=== PATIENT | male | born 1980 | race Caucasian/White ===

== ENCOUNTER → 2018-06-28 13:10 | Outpatient (CLI) | payer OTHER, SELFPAY ==
[2018-06-28 14:07] LABS: Add Manual Diff / Slide Review NO; Basophils Absolute Auto 0 /uL (0-100); Basophils Percent Auto 0.6 % (0-2); Eosinophils Absolute Auto 0 /uL (0-450); Eosinophils Percent Auto 0.9 % (2-4); Hematocrit 44.1 % (41-53); Lymphocytes Absolute Auto 1600 /uL (1100-4500); Lymphocytes Percent Auto 30.1 % (25-40); Mean Corpuscular HGB Conc 33.9 % (30-36); Mean Corpuscular Hemoglobin 30.5 PG (26-34); Mean Corpuscular Volume 89.9 fL (80-100); Monocytes Absolute Auto 800 /uL (0-900); Monocytes Percent Auto 15.1 % (3-14); Neutrophils Absolute Auto 2900 /uL (1500-7000); Neutrophils Percent Auto 53.3 % (50-75); Platelet Count 212 X10^3/uL (150-400); Red Cell Distribution Width 14.3 % (11.6-14.8); White Blood Cell Count 5.4 X10^3/uL (4.5-11.0)
[2018-06-28 14:17] LABS: Alanine Aminotransferase 44 IU/L (21-72); Albumin 4.7 g/dL (3.5-5.0); Albumin Globulin Ratio 1.5 (1.0-2.8); Alkaline Phosphatase 62 U/L (38-126); Aspartate Aminotransferase 44 IU/L (17-59); BUN Creatinine Ratio 15.5 (6-22); Bilirubin Total 1.3 mg/dL (0.2-1.3); Blood Urea Nitrogen 17 mg/dL (9-20); Calcium 9.2 mg/dL (8.4-10.2); Carbon Dioxide 24 mmol/L (22-32); Chloride 103 mmol/L (98-107); Estimated Glomerular Filt Rate > 60.0 mL/min (>60); Globulin 3.1 g/dL (1.7-4.1); Glucose 81 mg/dL (70-100); HEMOLYSIS < 15 (0-50); Lipase 257 U/L (23-300); Potassium 3.4 mmol/L (3.4-5.1); Sodium 141 mmol/L (137-145); Total Protein 7.8 g/dL (6.3-8.2)
== END ==
PROVIDERS: Family Provider Family Medicine; PCP Family Medicine; Visit Provider Physician Assistant
DX: R19.7 Diarrhea, unspecified (principal)
CPT/HCPCS: 36415; 80053; 83690; 85025

== ENCOUNTER → 2020-11-17 16:50 | Outpatient (CLI) | payer OTHER, SELFPAY ==
[2020-11-17 17:27] LABS: Add Manual Diff / Slide Review NO; Basophils Absolute Auto 100 /uL (0-100); Basophils Percent Auto 0.8 % (0-2); Eosinophils Absolute Auto 100 /uL (0-450); Hematocrit 43.7 % (41-53); Lymphocytes Absolute Auto 2700 /uL (1100-4500); Lymphocytes Percent Auto 36.9 % (25-40); Mean Corpuscular HGB Conc 34.3 % (30-36); Mean Corpuscular Hemoglobin 30.9 PG (26-34); Mean Corpuscular Volume 90.3 fL (80-100); Monocytes Absolute Auto 500 /uL (0-900); Monocytes Percent Auto 6.5 % (3-14); Neutrophils Absolute Auto 3900 /uL (1500-7000); Neutrophils Percent Auto 53.8 % (50-75); Platelet Count 220 X10^3/uL (150-400); Red Blood Cell Count 4.84 X10^6/uL (4.5-5.9); Red Cell Distribution Width 13.6 % (11.6-14.8); White Blood Cell Count 7.2 X10^3/uL (4.5-11.0)
[2020-11-17 17:49] LABS: Alanine Aminotransferase 27 IU/L (<50); Albumin 4.6 g/dL (3.5-5.0); Albumin Globulin Ratio 1.5 (1.0-2.8); Alkaline Phosphatase 67 U/L (38-126); Aspartate Aminotransferase 36 IU/L (17-59); BUN Creatinine Ratio 16.7 (6-22); Bilirubin Total 0.7 mg/dL (0.2-1.3); Blood Urea Nitrogen 15 mg/dL (9-20); Calcium 9.3 mg/dL (8.4-10.2); Carbon Dioxide 29 mmol/L (22-32); Chloride 106 mmol/L (98-107); Cholesterol 243 mg/dL (140-199); Estimated Glomerular Filt Rate > 60.0 mL/min (>60); Glucose 111 mg/dL (70-100); HDL Cholesterol 39 mg/dL (40-60); HEMOLYSIS < 15 (0-50); Potassium 3.6 mmol/L (3.4-5.1); Sodium 141 mmol/L (137-145); Total Protein 7.6 g/dL (6.3-8.2); Triglycerides 443 mg/dL (35-150)
[2020-11-17 18:15] LABS: TSH w/ Reflex to FT4 1.78 uIU/mL (0.47-4.68)
== END ==
PROVIDERS: Family Provider Family Medicine; PCP Student in an Organized Health Care Education/Training Program; Referring Provider Student in an Organized Health Care Education/Training Program; Visit Provider Student in an Organized Health Care Education/Training Program
DX: C44.91 Basal cell carcinoma of skin, unspecified (principal); I10 Essential (primary) hypertension; Z13.220 Encounter for screening for lipoid disorders; E55.9 Vitamin D deficiency, unspecified
CPT/HCPCS: 36415; 80053; 80061; 82306; 84443; 85025

== ENCOUNTER → 2020-12-04 07:49 | Outpatient (CLI) | payer OTHER, SELFPAY | PROVIDERS: Family Provider Family Medicine; PCP Student in an Organized Health Care Education/Training Program; Referring Provider Student in an Organized Health Care Education/Training Program; Visit Provider Student in an Organized Health Care Education/Training Program | DX: E78.1 Pure hyperglyceridemia (principal); R79.89 Other specified abnormal findings of blood chemistry | CPT/HCPCS: 36415; 80061; 83704; 83721 ==

== ENCOUNTER 2021-09-03 18:55 | Emergency (ER) | payer OTHER, SELFPAY ==
[2021-09-03 19:13] VITALS: BP 155/99; PULSE 80; RESP 18; TEMP 36.8; O2SAT 98; BMI 28.5
--- NOTE | 2021-09-03 19:14 | ED.DIZZY ---
HPI - Dizziness General Chief Complaint: Dizziness Stated Complaint: hard time waking up,dizziness Time Seen by Provider: 09/03/21 19:11 Source: patient Mode of arrival: Ambulatory Limitations: no limitations History of Present Illness HPI Narrative: This is a 41-year-old male who comes emergency department patient states he laid down for a few minutes woke up an hour later. He states he was kind of hard to awaken for his kids. Afterwards he felt lightheaded and both his arms were tingling for about 10 minutes. He states this has all resolved. He denies headache, no fevers or chills. No additional dizziness although he states if he stands up very quickly he will have a little bit of mild symptoms. No cough, cold, congestive symptoms. He states he is still feels tired like he could fall asleep and sleeps very deeply. He notes that he is in his 1st week of using his CPAP machine. Patient denies any chest pain or shortness of breath. Denies any nausea or vomiting. He denies any constipation. He did have diarrheal stools x2 in the last 24 hours. Denies any dysuria urgency, dark urine or hematuria. 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 He states he had a cup of coffee today but has not really adjusted any other fluids. He is on lisinopril for hypertension. He has sleep apnea and was recently started on his CPAP. Only surgeries were excision of a skin cancer, no allergies to medications. No tobacco, rare alcohol and none today, no illicit. Patient's primary care physician is Dr. Zacarias. Related Data Previous Rx's Medication Instructions Recorded lisinopril 20 mg tablet 20 mg PO DAILY #90 tabs 03/29/21 Allergies Allergy/AdvReac Type Severity Reaction Status Date / Time No Known Drug Allergies Allergy Verified 09/03/21 19:13 Review of Systems Review of Systems ROS Unobtainable: All systems reviewed & are unremarkable except as noted in HPI and below Patient History Medical History Excessive daytime sleepiness Obstructive sleep apnea Skin cancer (~2017) Surgical History Anesthesia History of oral surgery Status post Mohs surgery (~04/2017) Status post myringotomy with insertion of tube Family History Father Obstructive sleep apnea Leiomyosarcoma Chronic pain Cancer Grandmother Age: 90 Diabetes mellitus Grandfather Diabetes mellitus Sister Age: 39 Parasomnia Social History Smoking Status: Never smoker Smoking Status: Never smoker Exam Narrative Exam Narrative: GEN: well nourished, well appearing male, alert and oriented x 3, patient appears to be in mild distress. HEENT: Atraumatic, pupils are equal round reactive to light, extraocular movements are intact, nares are clear, TMs are clear with no fluid, there is no conjunctival pallor. Throat is clear without any exudates, erythema, tonsillar enlargement or uvular deviation, no facial droop. HEART: Regular rate and rhythm without murmur, clicks, rubs. Pulses equal bilateral upper extremities. LUNGS:Lungs clear to auscultation, no wheezes, rales, crackles, chest moves symmetrically ABD:bowel sounds normal, soft, non-tender, no guarding, rebound, rigidity, no masses noted, no hepatosplenomegaly :No CVA tenderness MSCL: Non-tender, no muscle atrophy, muscles strength 5/5 upper and lower extremities, full range of motion, normal gait NEURO:CN 2-12 intact, sensation normal, reflexes 2/4 upper and lower extremities. finger nose finger test normal, heel sy test normal SKIN: No rash, erythema or other skin changes Initial Vital Signs Initial Vital Signs: Vital Signs Temperature 98.3 F 09/03/21 19:13 Pulse Rate 80 09/03/21 19:13 Respiratory Rate 18 09/03/21 19:13 Blood Pressure 155/99 H 09/03/21 19:13 Pulse Oximetry 98 09/03/21 19:13 Oxygen Delivery Method 09/03/21 19:13 Course Orders Ordered: ED Orders 09/03/21 19:19 EKG-12 Lead Stat 09/03/21 19:20 COVID19 -Nasal RAPID/Pre-Proc Stat 09/03/21 19:45 CBC Auto Diff [Complete Blood Count AUTO DIFF] Stat CMP [Comprehensive Metabolic Panel] Stat Vital Signs Vital signs: Vital Signs - 8 hr 09/03/21 19:13 09/03/21 21:05 Temperature 98.3 F Pulse Rate 80 81 Respiratory Rate 18 16 Blood Pressure 155/99 H 151/72 H Pulse Oximetry 98 98 Oxygen Delivery Method Room Air Room Air MDM - Dizziness Lab Data Result diagrams: 09/03/21 19:45 09/03/21 19:45 Labs: Lab Results 09/03/21 09/03/21 09/03/21 Range/Units 19:20 19:45 19:45 WBC 7.7 (4.5-11.0) X10^3/uL RBC 4.60 (4.5-5.9) X10^6/uL Hgb 14.7 (13.5-17.5) g/dL Hct 41.0 (41-53) % MCV 89.0 (80-100) fL MCH 32.0 (26-34) PG MCHC 35.9 (30-36) % RDW 13.9 (11.6-14.8) % Plt Count 213 (150-400) X10^3/uL Neut % (Auto) 60.6 (50-75) % Lymph % (Auto) 31.2 (25-40) % [place] % (Auto) 4.8 (3-14) % Eos % (Auto) 2.6 (2-4) % Baso % (Auto) 0.8 (0-2) % Neut # (Auto) 4600 (8300-0658) /uL Lymph # (Auto) 2400 (1900-2113) /uL [place] # (Auto) 400 (0-900) /uL Eos # (Auto) 200 (0-450) /uL Baso # (Auto) 100 (0-100) /uL Sodium 139 (137-145) mmol/L Potassium 3.8 (3.4-5.1) mmol/L Chloride 107 (98-107) mmol/L Carbon Dioxide 20 L (22-32) mmol/L BUN 20 (9-20) mg/dL Creatinine 0.98 (0.66-1.25) mg/dL Estimated GFR > 60 (>60) mL/min BUN/Creatinine Ratio 20.4 (6-22) Glucose 142 H (70-100) mg/dL Calcium 8.8 (8.4-10.2) mg/dL Total Bilirubin 0.6 (0.2-1.3) mg/dL AST 36 (17-59) IU/L ALT 24 (<50) IU/L Alkaline Phosphatase 69 (38-126) U/L Total Protein 7.2 (6.3-8.2) g/dL Albumin 4.4 (3.5-5.0) g/dL Globulin 2.8 (1.7-4.1) g/dL Albumin/Globulin Ratio 1.6 (1.0-2.8) SARS-CoV-2 (PCR) Negative (Negative) Point of Care Testing Glucose POC 139 ECG Data Attestation: I personally reviewed and interpreted this ECG as follows: Prior ECG tracings: not available for review Interpretation: Sinus rhythm rate of 79 IN 114 QRS of 96 and QTC of 419. No acute ST changes appreciated. No priors available for comparison. MDM Narrative Medical decision making narrative: This is a 41-year-old male who comes with complaint of lightheadedness upon awakening states he was hard to awaken by his child and still feels sleepy and tingling of his upper arms which resolved about 10 minutes after he woke up. Discharge Plan Departure Patient Disposition: Home Clinical Impression: Dizziness Instructions: DI for Orthostatic Hypotension Activity Restrictions/Additional Instructions: Follow-up if you are having any mild but persistent symptoms. Please increase your fluid intake. Please continue your CPAP it will become more comfortable over time acute find it quite helpful. Please return to the emergency department severe headaches, altered mental status, passing out, new chest pain or shortness of breath, new weakness, numbness or tingling, facial droop, speech difficulties or other new or concerning symptoms. Prescriptions: No Action lisinopril 20 mg tablet 20 mg PO DAILY Qty: 90 2RF Referrals: Prabhjot Zacarias MD [Primary Care Provider] - Visit Report Forms: Patient Portal/API
--- NOTE | 2021-09-03 19:42 | PC.NURSE ---
Pt reports feeling more tired than normal. Denies any other sx at this time.
[2021-09-03 19:49] LABS: COVID19 -Nasal RAPID Negative (Negative)
[2021-09-03 20:08] LABS: Add Manual Diff / Slide Review NO; Basophils Absolute Auto 100 /uL (0-100); Basophils Percent Auto 0.8 % (0-2); Eosinophils Absolute Auto 200 /uL (0-450); Eosinophils Percent Auto 2.6 % (2-4); Hemoglobin 14.7 g/dL (13.5-17.5); Lymphocytes Absolute Auto 2400 /uL (1100-4500); Lymphocytes Percent Auto 31.2 % (25-40); Mean Corpuscular HGB Conc 35.9 % (30-36); Monocytes Absolute Auto 400 /uL (0-900); Monocytes Percent Auto 4.8 % (3-14); Neutrophils Absolute Auto 4600 /uL (1500-7000); Neutrophils Percent Auto 60.6 % (50-75); Platelet Count 213 X10^3/uL (150-400); Red Cell Distribution Width 13.9 % (11.6-14.8); White Blood Cell Count 7.7 X10^3/uL (4.5-11.0)
[2021-09-03 20:36] LABS: Alanine Aminotransferase 24 IU/L (<50); Albumin 4.4 g/dL (3.5-5.0); Albumin Globulin Ratio 1.6 (1.0-2.8); Alkaline Phosphatase 69 U/L (38-126); Aspartate Aminotransferase 36 IU/L (17-59); BUN Creatinine Ratio 20.4 (6-22); Bilirubin Total 0.6 mg/dL (0.2-1.3); Blood Urea Nitrogen 20 mg/dL (9-20); Calcium 8.8 mg/dL (8.4-10.2); Carbon Dioxide 20 mmol/L (22-32); Chloride 107 mmol/L (98-107); Estimated Glomerular Filt Rate > 60 mL/min (>60); Globulin 2.8 g/dL (1.7-4.1); Glucose 142 mg/dL (70-100); Sodium 139 mmol/L (137-145); Total Protein 7.2 g/dL (6.3-8.2)
[2021-09-03 20:48] LABS: HEMOLYSIS 53 (0-50)
[2021-09-03 20:49] LABS: Potassium 3.8 mmol/L (3.4-5.1)
[2021-09-03 21:05] VITALS: BP 151/72; PULSE 81; RESP 16; O2SAT 98
== END 2021-09-03 21:06 | disposition home or self-care (01) ==
PROVIDERS: Emergency Provider Emergency Medicine; Family Provider Family Medicine; PCP Student in an Organized Health Care Education/Training Program
DX: R42 Dizziness and giddiness (principal); R20.2 Paresthesia of skin; R19.7 Diarrhea, unspecified; Z20.822 Contact with and (suspected) exposure to COVID-19
CPT/HCPCS: 36415; 80053; 82962; 85025; 87635; 93005; 93010; 99283; 99284; C9803

== ENCOUNTER 2021-11-20 16:11 | Emergency (ER) | payer OTHER, SELFPAY ==
[2021-11-20 16:37] VITALS: BP 134/92; PULSE 94; RESP 18; TEMP 36.6; O2SAT 99; BMI 28.5
--- NOTE | 2021-11-20 20:56 | ED.SYNCOPE ---
HPI - Syncope General Chief Complaint: Dizziness Stated Complaint: Vertigo per pt, [facility] sent him Source: patient Mode of arrival: Ambulatory Limitations: no limitations Related Data Previous Rx's Medication Instructions Recorded lisinopril 20 mg tablet 20 mg PO DAILY #90 tabs 03/29/21 loratadine-pseudoephedrine ER 10 1 tab PO DAILY #14 tabs 11/14/21 mg-240 mg tablet,extended [id number] (Claritin-D 24 Hour) meclizine 25 mg tablet 25 mg PO BID PRN dizziness #20 tabs 11/14/21 Allergies Allergy/AdvReac Type Severity Reaction Status Date / Time No Known Drug Allergies Allergy Verified 11/20/21 16:37 Patient History Medical History Excessive daytime sleepiness Obstructive sleep apnea Skin cancer (~2017) Surgical History Anesthesia History of oral surgery Status post Mohs surgery (~04/2017) Status post myringotomy with insertion of tube Family History Father Obstructive sleep apnea Leiomyosarcoma Chronic pain Cancer Grandmother Age: 90 Diabetes mellitus Grandfather Diabetes mellitus Sister Age: 39 Parasomnia Social History Smoking Status: Never smoker Smoking Status: Never smoker alcohol intake frequency: holidays/special occasions only Substance Use Type: does not use Exam Initial Vital Signs Initial Vital Signs: Vital Signs Temperature 97.8 F 11/20/21 16:37 Pulse Rate 94 H 11/20/21 16:37 Respiratory Rate 18 11/20/21 16:37 Blood Pressure 134/92 H 11/20/21 16:37 Pulse Oximetry 99 11/20/21 16:37 Oxygen Delivery Method 11/20/21 16:37 Course Orders Ordered: ED Orders 11/20/21 16:45 XR chest 1V Stat Complete Blood Count AUTO DIFF Stat Comprehensive Metabolic Panel Stat Lipase Stat Magnesium Stat Troponin & CK Cardiac Panel Stat EKG-12 Lead Stat Vital Signs Vital signs: Vital Signs - 8 hr 11/20/21 16:37 Temperature 97.8 F Pulse Rate 94 H Respiratory Rate 18 Blood Pressure 134/92 H Pulse Oximetry 99 Oxygen Delivery Method Room Air Discharge Plan Departure Patient Disposition: Left Without Being Seen Clinical Impression: Patient left after triage
== END 2021-11-20 17:05 | disposition left against medical advice (07) ==
PROVIDERS: Emergency Provider Emergency Medicine; Family Provider Family Medicine; PCP Student in an Organized Health Care Education/Training Program
CPT/HCPCS: 99281

== ENCOUNTER 2021-11-23 10:59 | Emergency (ER) | payer OTHER, SELFPAY ==
[2021-11-23 11:26] VITALS: BP 146/105; PULSE 83; RESP 18; TEMP 36.8; O2SAT 99; BMI 28.3
--- NOTE | 2021-11-23 11:29 | DI.RAD.S_ITS ---
PROCEDURE: XR CHEST 1V INDICATIONS: Chest pain TECHNIQUE: One view of the chest was acquired. COMPARISON: None. FINDINGS: Surgical changes and devices: None. Lungs and pleura: Lungs are clear. No pleural effusions or pneumothorax. Mediastinum: Mediastinal contours appear normal. Heart size is normal. Bones and chest wall: No suspicious bony lesions. Overlying soft tissues appear unremarkable. IMPRESSION: No acute cardiopulmonary process demonstrated radiographically. Dictated by: Virgil Shaffer M.D. on 11/23/2021 at 11:51 Approved by: Virgil Shaffer M.D. on 11/23/2021 at 11:54
[2021-11-23 12:17] LABS: COVID19 -Nasal RAPID Negative (Negative)
[2021-11-23 12:26] LABS: Add Manual Diff / Slide Review NO; Basophils Absolute Auto 100 /uL (0-100); Basophils Percent Auto 0.8 % (0-2); Eosinophils Absolute Auto 0 /uL (0-450); Eosinophils Percent Auto 0.5 % (2-4); Lymphocytes Absolute Auto 1400 /uL (1100-4500); Lymphocytes Percent Auto 17.2 % (25-40); Mean Corpuscular HGB Conc 34.9 % (30-36); Mean Corpuscular Hemoglobin 31.2 PG (26-34); Mean Corpuscular Volume 89.4 fL (80-100); Monocytes Absolute Auto 500 /uL (0-900); Monocytes Percent Auto 6.4 % (3-14); Neutrophils Absolute Auto 6300 /uL (1500-7000); Neutrophils Percent Auto 75.1 % (50-75); Platelet Count 232 X10^3/uL (150-400); Red Blood Cell Count 5.14 X10^6/uL (4.5-5.9); Red Cell Distribution Width 14.2 % (11.6-14.8); White Blood Cell Count 8.4 X10^3/uL (4.5-11.0)
[2021-11-23 12:42] LABS: Alanine Aminotransferase 27 IU/L (<50); Albumin Globulin Ratio 1.3 (1.0-2.8); Alkaline Phosphatase 61 U/L (38-126); Aspartate Aminotransferase 35 IU/L (17-59); BUN Creatinine Ratio 11.3 (6-22); Blood Urea Nitrogen 11 mg/dL (9-20); Calcium 9.8 mg/dL (8.4-10.2); Carbon Dioxide 29 mmol/L (22-32); Chloride 104 mmol/L (98-107); Creatine Kinase 235 U/L (55-170); Estimated Glomerular Filt Rate > 60 mL/min (>60); Globulin 3.9 g/dL (1.7-4.1); Glucose 101 mg/dL (70-100); HEMOLYSIS < 15 (0-50); Lipase 190 U/L (23-300); Magnesium 2.3 mg/dL (1.6-2.3); Sodium 145 mmol/L (137-145); Total Protein 8.9 g/dL (6.3-8.2)
[2021-11-23 12:53] LABS: Troponin I < 0.012 ng/mL (0.01-0.034)
[2021-11-23 12:57] LABS: CKMB % Relative Index 0.7 % (1.5-5.0); Creatine Kinase MB 1.55 ng/mL (<2.37)
--- NOTE | 2021-11-23 16:01 | PC.NURSE ---
Pt appears well, AAOx3, ambulatory. Pt roomed into 3 and Michelle Parker PAC at bedside for assessment.
[2021-11-23 16:10] VITALS: BP 150/105; PULSE 77; RESP 20; O2SAT 99
--- NOTE | 2021-11-23 16:48 | ED_ITS ---
HPI - Weakness <Michelle Parker PA-C - Last Filed: 11/23/21 16:53> General Chief complaint: Weakness Stated complaint: high blood pressure, weakness Time Seen by Provider: 11/23/21 15:54 Source: patient Mode of arrival: Ambulatory History of Present Illness HPI Narrative: 41-year-old male with past medical history hypertension presents to the ED with 3 days of URI symptoms, weakness. Patient states that he started experiencing a sore throat, cough, runny nose, followed by fatigue this morning. Patient noted that his blood pressure was very elevated with systolic in the 170s. Patient takes lisinopril daily as prescribed for hypertension. Patient denies fever, chills, chest pain, shortness of breath, nausea, vomiting, dysuria, lightheadedness, dizziness, syncope. Patient states that his children have had the cold at home, that he likely caught it from them. Related Data Previous Rx's Medication Instructions Recorded lisinopril 20 mg tablet 20 mg PO DAILY #90 tabs 03/29/21 loratadine-pseudoephedrine ER 10 1 tab PO DAILY #14 tabs 11/14/21 mg-240 mg tablet,extended [id number] (Claritin-D 24 Hour) Allergies Allergy/AdvReac Type Severity Reaction Status Date / Time No Known Drug Allergies Allergy Verified 11/25/21 10:48 Review of Systems <Michelle Parker PA-C - Last Filed: 11/23/21 16:53> Review of Systems ROS Unobtainable: All systems reviewed & are unremarkable except as noted in HPI and below Constitutional Constitutional: Denies chills, Reports fatigue, Denies fever(s), Denies frequent falls, Denies lethargy and Reports weakness Eyes Eyes: Denies change in vision, Denies eye discharge, Denies irritation and Denies loss of vision ENT Ears, Nose, Mouth, and Throat: Denies change in voice, Denies dizziness, Reports nasal congestion, Reports nasal discharge, Denies neck pain, Reports sore throat and Denies throat swelling Cardiovascular Cardiovascular: Denies chest pain, Denies irregular heart rhythm, Denies lightheadedness, Denies palpitations, Denies dyspnea, Denies dyspnea on exertion and Denies orthopnea Respiratory Respiratory: Denies cough, Denies dyspnea, Denies dyspnea on exertion and Denies wheezing Gastrointestinal Gastrointestinal: Denies abdominal pain, Denies change in bowel habits, Denies diarrhea, Denies nausea and Denies vomiting Genitourinary Genitourinary: Denies hematuria, Denies flank pain, Denies urinary incontinence and Denies urinary urgency Musculoskeletal Musculoskeletal: Denies back pain, Denies muscle weakness, Denies neck pain, Denies numbness and Denies tingling Integumentary/Breasts Skin/Breast: Denies pruritus, Denies erythema, Denies rash and Denies wounds Neurologic Neurologic: Denies behavioral changes, Denies confusion, Denies dizziness, Denies frequent falls, Denies loss of vision, Denies numbness, Denies tingling and Reports weakness Psychiatric Psychiatric: Denies anxiety, Denies behavioral changes, Denies confusion, Denies depression, Denies homicidal ideation and Denies suicidal ideation Endocrine Endocrine: Reports fatigue, Denies flushing and Denies palpitations Hematologic/Lymphatic Hematologic/Lymphatic: Denies easy bruising Allergic/Immunologic Allergic/Immunologic: Denies urticaria, Denies throat swelling and Denies wheezing Patient History <Michelle Parker PA-C - Last Filed: 11/23/21 16:53> Medical History Excessive daytime sleepiness Obstructive sleep apnea Skin cancer (~2017) Surgical History Anesthesia History of oral surgery Status post Mohs surgery (~04/2017) Status post myringotomy with insertion of tube Family History Father Obstructive sleep apnea Leiomyosarcoma Chronic pain Cancer Grandmother Age: 90 Diabetes mellitus Grandfather Diabetes mellitus Sister Age: 39 Parasomnia Social History Smoking Status: Never smoker Smoking Status: Never smoker alcohol intake frequency: holidays/special occasions only Substance Use Type: does not use Exam <Michelle Parker PA-C - Last Filed: 11/23/21 16:53> Narrative Exam Narrative: Const General:?cooperative, healthy appearing and comfortable [facility] Head:?normal to inspection Ears:?hearing grossly normal bilaterally Nose:?external nose normal Face and sinus:?normal facial exam and sinuses nontender Mouth:?oral mucosae normal Throat:?posterior oropharynx normal Eyes General:?appearance normal, both eyes and all related structures Neck Neck:?normal visual inspection and no lymphadenopathy noted Resp Effort & Inspection:?normal respiratory effort Auscultation:?clear to auscultation bilaterally Cardio Rate:?regular rate Rhythm:?regular rhythm Neuro General:?patient alert, patient awake and patient oriented x3 Initial Vital Signs Initial Vital Signs: Vital Signs Temperature 98.3 F 11/23/21 11:26 Pulse Rate 83 11/23/21 11:26 Respiratory Rate 18 11/23/21 11:26 Blood Pressure 146/105 H 11/23/21 11:26 Pulse Oximetry 99 11/23/21 11:26 Oxygen Delivery Method 11/23/21 11:26 <Zabrina Cota DO - Last Filed: 11/26/21 14:40> Initial Vital Signs Initial Vital Signs: Vital Signs Temperature 98.3 F 11/23/21 11:26 Pulse Rate 83 11/23/21 11:26 Respiratory Rate 18 11/23/21 11:26 Blood Pressure 146/105 H 11/23/21 11:26 Pulse Oximetry 99 11/23/21 11:26 Oxygen Delivery Method 11/23/21 11:26 Course <Michelle aPrker PA-C - Last Filed: 11/23/21 16:53> Orders Ordered: ED Orders 11/23/21 11:29 XR chest 1V Stat EKG-12 Lead Stat 11/23/21 11:30 COVID19 -Nasal RAPID/Pre-Proc Stat 11/23/21 11:52 Complete Blood Count AUTO DIFF Stat Comprehensive Metabolic Panel Stat Lipase Stat Magnesium Stat Troponin & CK Cardiac Panel Stat Vital Signs Vital signs: Vital Signs - 8 hr 11/23/21 11:26 11/23/21 16:10 Temperature 98.3 F Pulse Rate 83 77 Respiratory Rate 18 20 Blood Pressure 146/105 H 150/105 H Pulse Oximetry 99 99 Oxygen Delivery Method Room Air Room Air <Zabrina Cota DO - Last Filed: 11/26/21 14:40> Orders Ordered: ED Orders 11/23/21 11:29 XR chest 1V Stat EKG-12 Lead Stat 11/23/21 11:30 COVID19 -Nasal RAPID/Pre-Proc Stat 11/23/21 11:52 Complete Blood Count AUTO DIFF Stat Comprehensive Metabolic Panel Stat Lipase Stat Magnesium Stat Troponin & CK Cardiac Panel Stat Vital Signs Vital signs: Vital Signs - 8 hr 11/23/21 11:26 11/23/21 16:10 Temperature 98.3 F Pulse Rate 83 77 Respiratory Rate 18 20 Blood Pressure 146/105 H 150/105 H Pulse Oximetry 99 99 Oxygen Delivery Method Room Air Room Air MDM - Weakness <Michelle Parker PA-C - Last Filed: 11/23/21 16:53> Lab Data Result diagrams: 11/23/21 11:52 11/23/21 11:52 Labs: Lab Results 11/23/21 11/23/21 11/23/21 Range/Units 11:30 11:52 11:52 WBC 8.4 (4.5-11.0) X10^3/uL RBC 5.14 (4.5-5.9) X10^6/uL Hgb 16.0 (13.5-17.5) g/dL Hct 46.0 (41-53) % MCV 89.4 (80-100) fL MCH 31.2 (26-34) PG MCHC 34.9 (30-36) % RDW 14.2 (11.6-14.8) % Plt Count 232 (150-400) X10^3/uL Neut % (Auto) 75.1 H (50-75) % Lymph % (Auto) 17.2 L (25-40) % [place] % (Auto) 6.4 (3-14) % Eos % (Auto) 0.5 L (2-4) % Baso % (Auto) 0.8 (0-2) % Neut # (Auto) 6300 (1386-7349) /uL Lymph # (Auto) 1400 (6631-7034) /uL [place] # (Auto) 500 (0-900) /uL Eos # (Auto) 0 (0-450) /uL Baso # (Auto) 100 (0-100) /uL Sodium 145 (137-145) mmol/L Potassium 4.0 (3.4-5.1) mmol/L Chloride 104 (98-107) mmol/L Carbon Dioxide 29 (22-32) mmol/L BUN 11 (9-20) mg/dL Creatinine 0.97 (0.66-1.25) mg/dL Estimated GFR > 60 (>60) mL/min BUN/Creatinine Ratio 11.3 (6-22) Glucose 101 H (70-100) mg/dL Calcium 9.8 (8.4-10.2) mg/dL Magnesium 2.3 (1.6-2.3) mg/dL Total Bilirubin 1.0 (0.2-1.3) mg/dL AST 35 (17-59) IU/L ALT 27 (<50) IU/L Alkaline Phosphatase 61 (38-126) U/L Total Creatine Kinase 235 H (55-170) U/L CK-MB (CK-2) 1.55 (<2.37) ng/mL CK-MB (CK-2) Rel Index 0.7 L (1.5-5.0) % Troponin I < 0.012 (0.01-0.034) ng/mL Total Protein 8.9 H (6.3-8.2) g/dL Albumin 5.0 (3.5-5.0) g/dL Globulin 3.9 (1.7-4.1) g/dL Albumin/Globulin Ratio 1.3 (1.0-2.8) Lipase 190 (23-300) U/L SARS-CoV-2 (PCR) Negative (Negative) Imaging Data Chest x-ray: Radiologist Impression: PROCEDURE:? XR CHEST 1V ? INDICATIONS:? Chest pain ? TECHNIQUE:? One view of the chest was acquired.? ? COMPARISON:? None. ? FINDINGS:? ? Surgical changes and devices:? None.? ? Lungs and pleura:? Lungs are clear.? No pleural effusions or pneumothorax.? ? Mediastinum:? Mediastinal contours appear normal.? Heart size is normal.? ? Bones and chest wall:? No suspicious bony lesions.? Overlying soft tissues appear unremarkable.? ? IMPRESSION:? No acute cardiopulmonary process demonstrated radiographically. ? ? Dictated by: Virgil Shaffer M.D. on 11/23/2021 at 11:51 ? ? Approved by: Virgil Shaffer M.D. on 11/23/2021 at 11:54 ? MDM Narrative Medical decision making narrative: 41-year-old male with past medical history hypertension presents to the ED with 3 days of URI symptoms, weakness. Concern for COVID-19 versus other viral elevated blood pressure reading. Patient's workup was without acute findings. Patient's symptoms are likely due to a viral URI. Supportive measures discussed with patient. Patient also agrees to follow up with his PCP to monitor his blood pressure. Advised patient to keep a home log of blood pressure readings to take with him to the PCP. ED return precautions were discussed with patient. He verbalized understanding. <Zabrina Cota, DO - Last Filed: 11/26/21 14:40> Lab Data Labs: Lab Results 11/23/21 11/23/21 11/23/21 Range/Units 11:30 11:52 11:52 WBC 8.4 (4.5-11.0) X10^3/uL RBC 5.14 (4.5-5.9) X10^6/uL Hgb 16.0 (13.5-17.5) g/dL Hct 46.0 (41-53) % MCV 89.4 (80-100) fL MCH 31.2 (26-34) PG MCHC 34.9 (30-36) % RDW 14.2 (11.6-14.8) % Plt Count 232 (150-400) X10^3/uL Neut % (Auto) 75.1 H (50-75) % Lymph % (Auto) 17.2 L (25-40) % [place] % (Auto) 6.4 (3-14) % Eos % (Auto) 0.5 L (2-4) % Baso % (Auto) 0.8 (0-2) % Neut # (Auto) 6300 (6376-8815) /uL Lymph # (Auto) 1400 (8530-4742) /uL [place] # (Auto) 500 (0-900) /uL Eos # (Auto) 0 (0-450) /uL Baso # (Auto) 100 (0-100) /uL Sodium 145 (137-145) mmol/L Potassium 4.0 (3.4-5.1) mmol/L Chloride 104 (98-107) mmol/L Carbon Dioxide 29 (22-32) mmol/L BUN 11 (9-20) mg/dL Creatinine 0.97 (0.66-1.25) mg/dL Estimated GFR > 60 (>60) mL/min BUN/Creatinine Ratio 11.3 (6-22) Glucose 101 H (70-100) mg/dL Calcium 9.8 (8.4-10.2) mg/dL Magnesium 2.3 (1.6-2.3) mg/dL Total Bilirubin 1.0 (0.2-1.3) mg/dL AST 35 (17-59) IU/L ALT 27 (<50) IU/L Alkaline Phosphatase 61 (38-126) U/L Total Creatine Kinase 235 H (55-170) U/L CK-MB (CK-2) 1.55 (<2.37) ng/mL CK-MB (CK-2) Rel Index 0.7 L (1.5-5.0) % Troponin I < 0.012 (0.01-0.034) ng/mL Total Protein 8.9 H (6.3-8.2) g/dL Albumin 5.0 (3.5-5.0) g/dL Globulin 3.9 (1.7-4.1) g/dL Albumin/Globulin Ratio 1.3 (1.0-2.8) Lipase 190 (23-300) U/L SARS-CoV-2 (PCR) Negative (Negative) Discharge Plan Departure Patient Disposition: Home Clinical Impression: BP (high blood pressure) Instructions: High Blood Pressure Activity Restrictions/Additional Instructions: You were evaluated in the ED today for weakness and high blood pressure. You workup was normal. Your symptoms are likely due to catching a cold from other family members. Your blood pressure was elevated in the ED today, please fol low-up with your PCP Dr. Sy as soon as possible. Please keep a blood pressure log at home where you record blood pressure twice a day at the same time for a couple of weeks. Please take that with you to the PCP. If symptoms worsen, you experience chest pain, shortness of breath, please return to the ED. Prescriptions: No Action loratadine-pseudoephedrine [Claritin-D 24 Hour] 10-240 mg tablet extended release 24 hr 1 tab PO DAILY Qty: 14 0RF lisinopril 20 mg tablet 20 mg PO DAILY Qty: 90 2RF Referrals: Prabhjot Zacarias MD [Primary Care Provider] - Visit Report Forms: Patient Portal/API <Zabrina Cota DO - Last Filed: 11/26/21 14:40> Cosign ED Attending Samsonature Attestation: I was immediately available in the department for consultation. Documentation has been reviewed.
== END 2021-11-23 16:14 | disposition home or self-care (01) ==
PROVIDERS: Emergency Medicine; Emergency Provider Student in an Organized Health Care Education/Training Program; Family Provider Family Medicine; PCP Student in an Organized Health Care Education/Training Program
DX: I10 Essential (primary) hypertension (principal); Z20.822 Contact with and (suspected) exposure to COVID-19; R07.9 Chest pain, unspecified
CPT/HCPCS: 36415; 71045; 80053; 82550; 82553; 83690; 83735; 84484; 85025; 87635; 93005; 93010; 99284; C9803

== ENCOUNTER 2021-11-25 10:29 | Emergency (ER) | payer OTHER, SELFPAY ==
[2021-11-25 10:43] VITALS: BP 144/93; PULSE 91; RESP 15; TEMP 36.6; O2SAT 99; BMI 29.1
--- NOTE | 2021-11-25 11:27 | ED_ITS ---
HPI - General Adult General Chief complaint: Urogenital-Male Stated complaint: pos dehydration Time Seen by Provider: 11/25/21 11:06 Source: patient Mode of arrival: Ambulatory History of Present Illness HPI narrative: Patient is a 41-year-old male who is here for evaluation of multiple episodes of urination this morning. He states that he goes to the restroom. Urinates less than what he normally does. Feels like he is emptying his bladder. Goes back and sits down and then feels like he has to go and urinate once again. He is not having any discomfort with urination. Had diarrhea this morning. No fevers. No abdominal pain. He thought maybe he was dehydrated so he started drinking more water. Related Data Previous Rx's Medication Instructions Recorded lisinopril 20 mg tablet 20 mg PO DAILY #90 tabs 03/29/21 loratadine-pseudoephedrine ER 10 1 tab PO DAILY #14 tabs 11/14/21 mg-240 mg tablet,extended [id number] (Claritin-D 24 Hour) Allergies Allergy/AdvReac Type Severity Reaction Status Date / Time No Known Drug Allergies Allergy Verified 11/25/21 10:48 Review of Systems Review of Systems ROS Unobtainable: All systems reviewed & are unremarkable except as noted in HPI and below Patient History Medical History Excessive daytime sleepiness Obstructive sleep apnea Skin cancer (~2017) Surgical History Anesthesia History of oral surgery Status post Mohs surgery (~04/2017) Status post myringotomy with insertion of tube Family History Father Obstructive sleep apnea Leiomyosarcoma Chronic pain Cancer Grandmother Age: 90 Diabetes mellitus Grandfather Diabetes mellitus Sister Age: 39 Parasomnia Social History Smoking Status: Never smoker Smoking Status: Never smoker alcohol intake frequency: holidays/special occasions only Substance Use Type: does not use Exam Initial Vital Signs Initial Vital Signs: Vital Signs Temperature 97.9 F 11/25/21 10:43 Pulse Rate 91 H 11/25/21 10:43 Respiratory Rate 15 11/25/21 10:43 Blood Pressure 144/93 H 11/25/21 10:43 Pulse Oximetry 99 11/25/21 10:43 Oxygen Delivery Method 11/25/21 10:43 Const General: cooperative and comfortable HENMT Head: normal to inspection and normocephalic Resp Effort & Inspection: normal respiratory effort Cardio Rate: regular rate GI Inspection: normal to inspection and non-distended Palpation: soft and No tender Skin General: no rashes or lesions noted Neuro General: patient alert, patient awake and moves all extremities Extrem General: normal to inspection and capillary refill normal Psych Appearance: grossly normal and well kempt Course Orders Ordered: Discontinued Medications Sodium Chloride (Normal Saline 0.9%) 1,000 mls @ 1,000 mls/hr IV BOLUS ONE Stop: 11/25/21 12:05 Last Admin: 11/25/21 11:31 Dose: Not Given Documented By: LORNE Vital Signs Vital signs: Vital Signs - 8 hr 11/25/21 10:43 11/25/21 12:27 Temperature 97.9 F Pulse Rate 91 H Respiratory Rate 15 86 H Blood Pressure 144/93 H 140/94 H Pulse Oximetry 99 99 Oxygen Delivery Method Room Air Room Air Medical Decision Making Lab Data Labs: Urine Dip Bedside Urine Glucose Negative Bedside Urine Bilirubin - Negative Bedside Urine Ketone - Negative Urine Specific [place] 1.005 Bedside Urine Occult Blood - Negative Bedside Urine pH 7.0 Bedside Urine Protein - Negative Bedside Urine Urobilinogen - Negative Bedside Urine Nitrite - Negative Bedside Urine Leukocytes - Negative Esterase Point of care testing: Urine Dip Bedside Urine Glucose Negative Bedside Urine Bilirubin - Negative Bedside Urine Ketone - Negative Urine Specific [place] 1.005 Bedside Urine Occult Blood - Negative Bedside Urine pH 7.0 Bedside Urine Protein - Negative Bedside Urine Urobilinogen - Negative Bedside Urine Nitrite - Negative Bedside Urine Leukocytes - Negative Esterase MDM Narrative Medical decision making narrative: Urinalysis shows no signs of infection. Post void residual shows that he is not retaining urine to the point were I would recommend putting in a urinary catheter. He states that he is not been sleeping well recently and wonder if maybe his urinary symptoms could be the result of stress and lack asleep. Reassured him that there did not appear to be any signs of an infection nor surgical issue. Advised that he contact his primary provider for follow-up. He expressed understanding and agreement. Discharge Plan Departure Patient Disposition: Home Clinical Impression: Urinary frequency Activity Restrictions/Additional Instructions: I do recommend that you continue to take any medications as directed. Stay hydrated like we discussed. If your symptoms worsen or you develop new symptoms please return to the emergency department. Contact your primary doctor for follow-up Prescriptions: No Action loratadine-pseudoephedrine [Claritin-D 24 Hour] 10-240 mg tablet extended release 24 hr 1 tab PO DAILY Qty: 14 0RF lisinopril 20 mg tablet 20 mg PO DAILY Qty: 90 2RF Referrals: Prabhjot Zacarias MD [Primary Care Provider] - Visit Report Forms: Patient Portal/API
[2021-11-25 12:27] VITALS: BP 140/94; RESP 86; O2SAT 99
== END 2021-11-25 12:28 | disposition home or self-care (01) ==
PROVIDERS: Emergency Provider Emergency Medicine; Family Provider Family Medicine; PCP Student in an Organized Health Care Education/Training Program
DX: R35.0 Frequency of micturition (principal)
CPT/HCPCS: 51798; 81003; 99282

== ENCOUNTER → 2021-11-30 11:29 | Outpatient (CLI) | payer OTHER, SELFPAY ==
[2021-11-30 12:07] LABS: Add Manual Diff / Slide Review NO; Basophils Absolute Auto 100 /uL (0-100); Basophils Percent Auto 0.7 % (0-2); Eosinophils Absolute Auto 100 /uL (0-450); Eosinophils Percent Auto 0.9 % (2-4); Hematocrit 46.3 % (41-53); Hemoglobin 15.9 g/dL (13.5-17.5); Lymphocytes Absolute Auto 1800 /uL (1100-4500); Lymphocytes Percent Auto 25.1 % (25-40); Mean Corpuscular HGB Conc 34.3 % (30-36); Mean Corpuscular Hemoglobin 30.8 PG (26-34); Mean Corpuscular Volume 89.7 fL (80-100); Monocytes Absolute Auto 300 /uL (0-900); Monocytes Percent Auto 4.1 % (3-14); Neutrophils Absolute Auto 5000 /uL (1500-7000); Neutrophils Percent Auto 69.2 % (50-75); Platelet Count 251 X10^3/uL (150-400); Red Blood Cell Count 5.16 X10^6/uL (4.5-5.9); Red Cell Distribution Width 13.9 % (11.6-14.8); White Blood Cell Count 7.2 X10^3/uL (4.5-11.0)
[2021-11-30 12:23] LABS: Erythrocyte Sedimentation Rate 3 MM/HR (0-15)
[2021-11-30 12:55] LABS: Alanine Aminotransferase 20 IU/L (<50); Albumin 4.9 g/dL (3.5-5.0); Albumin Globulin Ratio 1.6 (1.0-2.8); Alkaline Phosphatase 65 U/L (38-126); Aspartate Aminotransferase 29 IU/L (17-59); BUN Creatinine Ratio 11.8 (6-22); Bilirubin Total 0.8 mg/dL (0.2-1.3); Blood Urea Nitrogen 12 mg/dL (9-20); C-Reactive Protein Quant < 0.5 mg/dL (<1.0); Calcium 9.5 mg/dL (8.4-10.2); Carbon Dioxide 26 mmol/L (22-32); Chloride 104 mmol/L (98-107); Estimated Glomerular Filt Rate > 60 mL/min (>60); Globulin 3.1 g/dL (1.7-4.1); Glucose 103 mg/dL (70-100); HEMOLYSIS < 15 (0-50); Potassium 4.4 mmol/L (3.4-5.1); Sodium 143 mmol/L (137-145)
== END ==
PROVIDERS: Family Provider Family Medicine; PCP Student in an Organized Health Care Education/Training Program; Referring Provider Registered Nurse; Visit Provider Registered Nurse
DX: M79.651 Pain in right thigh (principal); M79.652 Pain in left thigh
CPT/HCPCS: 36415; 80053; 85025; 85651; 86140

== ENCOUNTER 2021-12-09 10:48 | Emergency (ER) | payer OTHER, SELFPAY ==
[2021-12-09] VITALS (12 sets, daily range): BP systolic 132–166; BP diastolic 85–101; PULSE 76–96; RESP 18; TEMP 37.2; O2SAT 97–100; BMI 29.1
--- NOTE | 2021-12-09 10:52 | DI.RAD.S_ITS ---
PROCEDURE: XR CHEST 2V INDICATIONS: shortness of breath TECHNIQUE: 2 views of the chest were acquired. COMPARISON: , , XR CHEST 1V, 11/23/2021, 11:41. FINDINGS: Surgical changes and devices: None. Lungs and pleura: Lungs are clear. No pleural effusions or pneumothorax. Mediastinum: Mediastinal contours are normal. Heart size is normal. Bones and chest wall: No suspicious bony abnormalities. Soft tissues appear unremarkable. IMPRESSION: No acute pulmonary process. Dictated by: Irina Iqbal M.D. on 12/09/2021 at 11:31 Approved by: Irina Iqbal M.D. on 12/09/2021 at 11:31
[2021-12-09 11:20] LABS: Add Manual Diff / Slide Review NO; Basophils Absolute Auto 100 /uL (0-100); Basophils Percent Auto 0.8 % (0-2); Eosinophils Absolute Auto 100 /uL (0-450); Eosinophils Percent Auto 0.6 % (2-4); Hematocrit 46.8 % (41-53); Hemoglobin 16.4 g/dL (13.5-17.5); Lymphocytes Absolute Auto 1900 /uL (1100-4500); Lymphocytes Percent Auto 22.5 % (25-40); Mean Corpuscular Hemoglobin 31.1 PG (26-34); Mean Corpuscular Volume 88.7 fL (80-100); Monocytes Absolute Auto 300 /uL (0-900); Monocytes Percent Auto 4.1 % (3-14); Neutrophils Absolute Auto 6000 /uL (1500-7000); Platelet Count 256 X10^3/uL (150-400); Red Blood Cell Count 5.28 X10^6/uL (4.5-5.9); Red Cell Distribution Width 13.6 % (11.6-14.8); White Blood Cell Count 8.3 X10^3/uL (4.5-11.0)
[2021-12-09 11:24] LABS: Lactate (Lactic Acid) 2.8 mmol/L (0.7-2.1)
[2021-12-09 11:25] LABS: Alanine Aminotransferase 41 IU/L (<50); Albumin Globulin Ratio 1.3 (1.0-2.8); Alkaline Phosphatase 73 U/L (38-126); Aspartate Aminotransferase 48 IU/L (17-59); BUN Creatinine Ratio 13.8 (6-22); Bilirubin Total 0.9 mg/dL (0.2-1.3); Blood Urea Nitrogen 15 mg/dL (9-20); Calcium 9.8 mg/dL (8.4-10.2); Carbon Dioxide 23 mmol/L (22-32); Chloride 105 mmol/L (98-107); Estimated Glomerular Filt Rate > 60 mL/min (>60); Globulin 3.8 g/dL (1.7-4.1); Glucose 131 mg/dL (70-100); HEMOLYSIS 47 (0-50); Potassium 3.9 mmol/L (3.4-5.1); Sodium 142 mmol/L (137-145); Total Protein 8.8 g/dL (6.3-8.2)
[2021-12-09 11:25] LABS: Creatine Kinase 272 U/L (55-170)
[2021-12-09 11:34] LABS: NT-proBNP (BNP-Adult 18+) 21 pg/mL (<125)
[2021-12-09 11:37] LABS: Troponin I < 0.012 ng/mL (0.01-0.034)
[2021-12-09 11:41] LABS: CKMB % Relative Index 0.6 % (1.5-5.0); Creatine Kinase MB 1.68 ng/mL (<2.37)
--- NOTE | 2021-12-09 11:45 | ED.SOB ---
HPI - SOB/Dyspnea General Chief Complaint: Shortness of Breath/Dyspnea Stated Complaint: Trouble Breathing Time Seen by Provider: 12/09/21 11:09 Source: patient Mode of arrival: Ambulatory Limitations: no limitations History of Present Illness HPI Narrative: Is a healthy 41-year-old male history of hypertension presenting today with shortness of breath. He states that he was in his normal state of health yesterday this is feels like he can not catch his breath he had extreme difficulty taking his trash out which is very atypical for him he usually walks the dog 3-4 miles daily. He was able to do so yesterday. He states that he traveled to [place] last week and got back. He has no calf pain or leg pain. He has not had any fever chills or cough. He has no chest pain. Related Data Previous Rx's Medication Instructions Recorded lisinopril 20 mg tablet 20 mg PO DAILY #90 tabs 03/29/21 albuterol sulfate 90 mcg/actuation 2 puff inhalation Q4-6H PRN 12/09/21 aerosol inhaler shortness of breath or wheezing #8.5 grams Allergies Allergy/AdvReac Type Severity Reaction Status Date / Time No Known Drug Allergies Allergy Verified 12/09/21 10:53 Review of Systems Review of Systems Narrative: GENERAL: Denies chills, fatigue, malaise, fever, sweats, travel HEENT: Denies sinus pain, ear pain, sore throat, difficulty swallowing, neck pain RESPIRATORY: See HPI CARDIOVASCULAR: Denies chest pain, palpitations, orthopnea, edema GASTROINTESTINAL: Denies nausea, vomiting, abdominal pain, diarrhea, constipation, melena. : Denies dysuria, frequency, incontinence, hematuria, urinary retention, flank pain. MUSCULOSKELETAL: Denies weakness, joint pain, or bony pain SKIN: No rash, no erythema, no pruritus NEUROLOGIC: Denies weakness, dizziness, headache, numbness, change in speech, confusion PSYCHIATRIC: No concerning psychosocial issues. 12 point review of systems is negative except for those stated above and HPI Patient History Medical History Allergic rhinitis (03/20/13) Basal cell carcinoma (BCC) (12/26/16) Family history of malignant neoplasm (03/20/13) Ganglion cyst of flexor tendon sheath (03/20/13) Moderate mixed hyperlipidemia not requiring statin therapy Obstructive sleep apnea Surgical History Anesthesia History of oral surgery Status post Mohs surgery (~04/2017) Status post myringotomy with insertion of tube Family History Father Obstructive sleep apnea Leiomyosarcoma Chronic pain Cancer Grandmother Age: 90 Diabetes mellitus Grandfather Diabetes mellitus Sister Age: 39 Parasomnia Social History Smoking Status: Never smoker Smoking Status: Never smoker alcohol intake frequency: holidays/special occasions only Substance Use Type: does not use Exam Initial Vital Signs Initial Vital Signs: Vital Signs Temperature 98.9 F 12/09/21 10:48 Pulse Rate 90 12/09/21 10:48 Respiratory Rate 18 12/09/21 10:48 Blood Pressure 166/101 H 12/09/21 10:48 Pulse Oximetry 100 12/09/21 10:48 Oxygen Delivery Method 12/09/21 10:48 GENERAL: Alert pleasant 41-year-old male mildly uncomfortable HEENT: Head atraumatic,EOMI, pupils reactive, face symmetric, moist mucous membranes CARDIOVASCULAR: Regular rate and rhythm without murmurs, rubs or gallops. RESPIRATORY: Breath sounds equal bilaterally, no wheezes rales or rhonchi. ABDOMEN: Soft, nontender. Normoactive bowel sounds all 4 quadrants. No guarding or rebound. EXTREMITIES: Normal range of motion, no clubbing or edema. Neurovascularly intact NEUROLOGICAL: Alert and oriented x4.Normal gait and speech. SKIN: Warm, dry, no laceration, no petechiae, no rashes or lesions. Scores PERC Score Age greater than or equal to 50 years: No Heart rate greater than or equal to 100 bpm: No Room Air O2 Sat less than 95%: No Unilateral leg swelling: No Recent trauma or surgery: No Hemoptysis: No Prior PE or DVT: No Hormone Use: No Total PERC Score: 0 Course Orders Ordered: ED Orders 12/09/21 10:52 XR chest 2V Stat Measure peak expiratory flow ONCE RT Consult Eval and Treat Now 12/09/21 11:00 Troponin & CK Cardiac Panel Stat 12/09/21 11:01 EKG-12 Lead Stat 12/09/21 11:02 Complete Blood Count AUTO DIFF Stat Comprehensive Metabolic Panel Stat D Dimer Stat Lactate (Lactic Acid) Stat NT-proBNP (BNP-Adult 18+) Stat Procalcitonin Stat Prothrombin Time INR Stat 12/09/21 12:23 COVID19 -Nasal RAPID/Pre-Proc Stat 12/09/21 15:17 Trop I [Troponin I] Stat Discontinued Medications Albuterol/Ipratropium (Albuterol/Ipratropium 3 Ml Ampul) 3 ml INH NOW ONE Stop: 12/09/21 11:54 Last Admin: 12/09/21 12:05 Dose: 3 ml Documented By: SIDDHARTH Vital Signs Vital signs: Vital Signs - 8 hr 12/09/21 10:48 12/09/21 11:38 12/09/21 12:05 Temperature 98.9 F Pulse Rate 90 86 76 Respiratory Rate 18 18 18 Blood Pressure 166/101 H 132/85 Pulse Oximetry 100 98 99 Oxygen Delivery Method Room Air Room Air Room Air 12/09/21 12:20 12/09/21 12:30 12/09/21 13:00 Temperature Pulse Rate 80 88 89 Respiratory Rate Blood Pressure 139/91 H 142/91 H 146/100 H Pulse Oximetry 99 99 Oxygen Delivery Method Room Air Room Air 12/09/21 13:33 12/09/21 14:00 12/09/21 14:00 Temperature Pulse Rate 90 96 H Respiratory Rate Blood Pressure 147/86 H Pulse Oximetry 99 97 Oxygen Delivery Method Room Air Room Air 12/09/21 14:30 12/09/21 15:00 12/09/21 15:30 Temperature Pulse Rate 87 95 H 81 Respiratory Rate Blood Pressure Pulse Oximetry 98 98 99 Oxygen Delivery Method Room Air Room Air Room Air 12/09/21 15:39 12/09/21 15:39 Temperature Pulse Rate 80 Respiratory Rate Blood Pressure 145/88 H Pulse Oximetry 99 Oxygen Delivery Method Room Air MDM - SOB/Dyspnea Lab Data Result diagrams: 12/09/21 11:02 12/09/21 11:02 Labs: Lab Results 12/09/21 12/09/21 12/09/21 Range/Units 11:00 11:02 11:02 WBC 8.3 (4.5-11.0) X10^3/uL RBC 5.28 (4.5-5.9) X10^6/uL Hgb 16.4 (13.5-17.5) g/dL Hct 46.8 (41-53) % MCV 88.7 (80-100) fL MCH 31.1 (26-34) PG MCHC 35.0 (30-36) % RDW 13.6 (11.6-14.8) % Plt Count 256 (150-400) X10^3/uL Neut % (Auto) 72.0 (50-75) % Lymph % (Auto) 22.5 L (25-40) % [place] % (Auto) 4.1 (3-14) % Eos % (Auto) 0.6 L (2-4) % Baso % (Auto) 0.8 (0-2) % Neut # (Auto) 6000 (5389-8161) /uL Lymph # (Auto) 1900 (5894-6198) /uL [place] # (Auto) 300 (0-900) /uL Eos # (Auto) 100 (0-450) /uL Baso # (Auto) 100 (0-100) /uL PT 12.0 (10.1-12.7) SECONDS INR 1.0 (0.9-1.3) D-Dimer (<500) ng/ml Sodium (137-145) mmol/L Potassium (3.4-5.1) mmol/L Chloride (98-107) mmol/L Carbon Dioxide (22-32) mmol/L BUN (9-20) mg/dL Creatinine (0.66-1.25) mg/dL Estimated GFR (>60) mL/min BUN/Creatinine Ratio (6-22) Glucose (70-100) mg/dL Lactate (0.7-2.1) mmol/L Calcium (8.4-10.2) mg/dL Total Bilirubin (0.2-1.3) mg/dL AST (17-59) IU/L ALT (<50) IU/L Alkaline Phosphatase (38-126) U/L Total Creatine Kinase 272 H (55-170) U/L CK-MB (CK-2) 1.68 (<2.37) ng/mL CK-MB (CK-2) Rel Index 0.6 L (1.5-5.0) % Troponin I < 0.012 (0.01-0.034) ng/mL NT-Pro-B Natriuret Pep (<125) pg/mL Total Protein (6.3-8.2) g/dL Albumin (3.5-5.0) g/dL Globulin (1.7-4.1) g/dL Albumin/Globulin Ratio (1.0-2.8) Procalcitonin (<0.5) ng/mL SARS-CoV-2 (PCR) (Negative) 12/09/21 12/09/21 12/09/21 Range/Units 11:02 11:02 11:02 WBC (4.5-11.0) X10^3/uL RBC (4.5-5.9) X10^6/uL Hgb (13.5-17.5) g/dL Hct (41-53) % MCV (80-100) fL MCH (26-34) PG MCHC (30-36) % RDW (11.6-14.8) % Plt Count (150-400) X10^3/uL Neut % (Auto) (50-75) % Lymph % (Auto) (25-40) % [place] % (Auto) (3-14) % Eos % (Auto) (2-4) % Baso % (Auto) (0-2) % Neut # (Auto) (2183-2555) /uL Lymph # (Auto) (1179-5649) /uL [place] # (Auto) (0-900) /uL Eos # (Auto) (0-450) /uL Baso # (Auto) (0-100) /uL PT (10.1-12.7) SECONDS INR (0.9-1.3) D-Dimer 456 (<500) ng/ml Sodium 142 (137-145) mmol/L Potassium 3.9 (3.4-5.1) mmol/L Chloride 105 (98-107) mmol/L Carbon Dioxide 23 (22-32) mmol/L BUN 15 (9-20) mg/dL Creatinine 1.09 (0.66-1.25) mg/dL Estimated GFR > 60 (>60) mL/min BUN/Creatinine Ratio 13.8 (6-22) Glucose 131 H (70-100) mg/dL Lactate 2.8 H (0.7-2.1) mmol/L Calcium 9.8 (8.4-10.2) mg/dL Total Bilirubin 0.9 (0.2-1.3) mg/dL AST 48 (17-59) IU/L ALT 41 (<50) IU/L Alkaline Phosphatase 73 (38-126) U/L Total Creatine Kinase (55-170) U/L CK-MB (CK-2) (<2.37) ng/mL CK-MB (CK-2) Rel Index (1.5-5.0) % Troponin I (0.01-0.034) ng/mL NT-Pro-B Natriuret Pep 21 (<125) pg/mL Total Protein 8.8 H (6.3-8.2) g/dL Albumin 5.0 (3.5-5.0) g/dL Globulin 3.8 (1.7-4.1) g/dL Albumin/Globulin Ratio 1.3 (1.0-2.8) Procalcitonin (<0.5) ng/mL SARS-CoV-2 (PCR) (Negative) 12/09/21 12/09/21 12/09/21 Range/Units 11:02 12:23 14:09 WBC (4.5-11.0) X10^3/uL RBC (4.5-5.9) X10^6/uL Hgb (13.5-17.5) g/dL Hct (41-53) % MCV (80-100) fL MCH (26-34) PG MCHC (30-36) % RDW (11.6-14.8) % Plt Count (150-400) X10^3/uL Neut % (Auto) (50-75) % Lymph % (Auto) (25-40) % [place] % (Auto) (3-14) % Eos % (Auto) (2-4) % Baso % (Auto) (0-2) % Neut # (Auto) (5785-9229) /uL Lymph # (Auto) (5146-0045) /uL [place] # (Auto) (0-900) /uL Eos # (Auto) (0-450) /uL Baso # (Auto) (0-100) /uL PT (10.1-12.7) SECONDS INR (0.9-1.3) D-Dimer (<500) ng/ml Sodium (137-145) mmol/L Potassium (3.4-5.1) mmol/L Chloride (98-107) mmol/L Carbon Dioxide (22-32) mmol/L BUN (9-20) mg/dL Creatinine (0.66-1.25) mg/dL Estimated GFR (>60) mL/min BUN/Creatinine Ratio (6-22) Glucose (70-100) mg/dL Lactate 1.7 (0.7-2.1) mmol/L Calcium (8.4-10.2) mg/dL Total Bilirubin (0.2-1.3) mg/dL AST (17-59) IU/L ALT (<50) IU/L Alkaline Phosphatase (38-126) U/L Total Creatine Kinase (55-170) U/L CK-MB (CK-2) (<2.37) ng/mL CK-MB (CK-2) Rel Index (1.5-5.0) % Troponin I (0.01-0.034) ng/mL NT-Pro-B Natriuret Pep (<125) pg/mL Total Protein (6.3-8.2) g/dL Albumin (3.5-5.0) g/dL Globulin (1.7-4.1) g/dL Albumin/Globulin Ratio (1.0-2.8) Procalcitonin 0.05 (<0.5) ng/mL SARS-CoV-2 (PCR) Negative (Negative) 12/09/21 Range/Units 15:17 WBC (4.5-11.0) X10^3/uL RBC (4.5-5.9) X10^6/uL Hgb (13.5-17.5) g/dL Hct (41-53) % MCV (80-100) fL MCH (26-34) PG MCHC (30-36) % RDW (11.6-14.8) % Plt Count (150-400) X10^3/uL Neut % (Auto) (50-75) % Lymph % (Auto) (25-40) % [place] % (Auto) (3-14) % Eos % (Auto) (2-4) % Baso % (Auto) (0-2) % Neut # (Auto) (4524-3155) /uL Lymph # (Auto) (8246-1604) /uL [place] # (Auto) (0-900) /uL Eos # (Auto) (0-450) /uL Baso # (Auto) (0-100) /uL PT (10.1-12.7) SECONDS INR (0.9-1.3) D-Dimer (<500) ng/ml Sodium (137-145) mmol/L Potassium (3.4-5.1) mmol/L Chloride (98-107) mmol/L Carbon Dioxide (22-32) mmol/L BUN (9-20) mg/dL Creatinine (0.66-1.25) mg/dL Estimated GFR (>60) mL/min BUN/Creatinine Ratio (6-22) Glucose (70-100) mg/dL Lactate (0.7-2.1) mmol/L Calcium (8.4-10.2) mg/dL Total Bilirubin (0.2-1.3) mg/dL AST (17-59) IU/L ALT (<50) IU/L Alkaline Phosphatase (38-126) U/L Total Creatine Kinase (55-170) U/L CK-MB (CK-2) (<2.37) ng/mL CK-MB (CK-2) Rel Index (1.5-5.0) % Troponin I < 0.012 (0.01-0.034) ng/mL NT-Pro-B Natriuret Pep (<125) pg/mL Total Protein (6.3-8.2) g/dL Albumin (3.5-5.0) g/dL Globulin (1.7-4.1) g/dL Albumin/Globulin Ratio (1.0-2.8) Procalcitonin (<0.5) ng/mL SARS-CoV-2 (PCR) (Negative) Imaging Data Chest x-ray: Radiologist's Impression: ent: John Esquivel Briana MR#: [id number] : 1980 Acct:[id number] Age/Sex: 41 / M Date of Service: 12/09/21 Loc: ED Accession Number: [id number] ?? Procedure: XR chest 2V Ordering Provider: Ary Fonseca D.O. PROCEDURE:? XR CHEST 2V ? INDICATIONS:? shortness of breath ? TECHNIQUE:? 2 views of the chest were acquired.? ? COMPARISON:? [facility], CR, XR CHEST 1V, 11/23/2021, 11:41. ? FINDINGS:? ? Surgical changes and devices:? None.? ? Lungs and pleura:? Lungs are clear.? No pleural effusions or pneumothorax.? ? Mediastinum:? Mediastinal contours are normal.? Heart size is normal.? ? Bones and chest wall:? No suspicious bony abnormalities.? Soft tissues appear unremarkable.? ? IMPRESSION:? No acute pulmonary process. ? ? Dictated by: Irina Iqbal M.D. on 12/09/2021 at 11:31 ? ? Approved by: Irina Iqbal M.D. on 12/09/2021 at 11:31 ? ECG Data Interpretation: Sinus rhythm rate 75 ER for interval 106 QRS 94 QTC 374 I do see P waves on the EKG specifically in V4 V5 and V6 and aVL and lead 1 no AV block or junctional rhythm MDM Narrative Medical decision making narrative: Patient presenting with shortness of breath with exertion with a recent air travel. D-dimer is negative he has a negative PERC score. His shortness of breath actually improved 30 minutes after his albuterol treatment. He says they just turned on the he in their house wondering epic up a lot of dust. He is not hypoxic or tachycardic. He has no sign of infection. His because he had such a significant improvement with albuterol this is likely more reactive airway disease than pulmonary embolism. He has 2- troponins and overall appears well. There is no sign of infection at this time no need for antibiotics supportive care only. He is discharged home with inhaler and a spacer. Discharge Plan Departure Patient Disposition: Home Clinical Impression: Reactive airway disease Instructions: DI for Asthma -- Adult Activity Restrictions/Additional Instructions: *You have been diagnosed with reactive airway *What to do: Thank you for your patients today. It appears that he likely having some inflammation in her airway. And let that albuterol has helped. *Continue to take medications as directed Albuterol 1-2 puffs every 4 hours if needed for shortness of breath --> SENT TO [facility] *Follow up with your primary care provider in 2-3 days or call [phone] *Return to ER if you should have increased shortness of breath difficulty breathing chest pain or any new, worsening or concerning symptoms Prescriptions: New albuterol sulfate 90 mcg/actuation HFA aerosol inhaler 2 puff INHALATION Q4-6H PRN (Reason: shortness of breath or wheezing) Qty: 8.5 0RF No Action lisinopril 20 mg tablet 20 mg PO DAILY Qty: 90 2RF Referrals: Prabhjot Zacarias MD [Primary Care Provider] - Visit Report Forms: Patient Portal/API
[2021-12-09] MEDS: ALBUTEROL/IPRATROPIUM 3 ML AMPUL INH (12:05)
[2021-12-09 12:12] LABS: D Dimer 456 ng/ml (<500)
[2021-12-09 13:06] LABS: COVID19 -Nasal RAPID Negative (Negative)
[2021-12-09 13:06] LABS: Reflexed Lactate in 2 Hours Y
[2021-12-09 13:32] LABS: Procalcitonin 0.05 ng/mL (<0.5)
[2021-12-09 15:18] LABS: Lactate 2HR (Lactic Acid Rflx) 1.7 mmol/L (0.7-2.1)
[2021-12-09 15:51] LABS: Troponin I < 0.012 ng/mL (0.01-0.034)
== END 2021-12-09 16:11 | disposition home or self-care (01) ==
PROVIDERS: Emergency Provider Emergency Medicine; Family Provider Family Medicine; PCP Student in an Organized Health Care Education/Training Program
DX: J45.909 Unspecified asthma, uncomplicated (principal); Z20.822 Contact with and (suspected) exposure to COVID-19
CPT/HCPCS: 36415; 71046; 80053; 82550; 82553; 83605; 83880; 84145; 84484; 85025; 85379; 85610; 87635; 93005; 94150; 94640; 99284; C9803